=== PATIENT | female | born 1995 | race Caucasian/White ===

== ENCOUNTER 2022-08-26 13:10 | Outpatient (CLI) | payer MEDICARE, SELFPAY ==
[2022-08-26 15:06] LABS: Cholesterol* 170 mg/dL (90-199); Triglycerides* 118 mg/dL (40-149)
[2022-08-26 15:07] LABS: HDL Cholesterol* 55 mg/dL (>=50); LDL Cholesterol Calculated 91 mg/dL (<100)
== END 2022-08-26 13:11 | disposition home or self-care (01) ==
LOC: NFLDREF 13:11
PROVIDERS: Visit Provider Obstetrics & Gynecology
DX: Z01.419 Encounter for gynecological examination (general) (routine) without abnormal findings (principal); E66.01 Morbid (severe) obesity due to excess calories; Z68.42 Body mass index [BMI] 45.0-49.9, adult; N92.0 Excessive and frequent menstruation with regular cycle; N93.8 Other specified abnormal uterine and vaginal bleeding
CPT/HCPCS: 80061

== ENCOUNTER 2022-08-30 13:48 | Outpatient (CLI) | payer MEDICARE, SELFPAY ==
--- NOTE | 2022-08-30 14:00 | CRLHL7_ITS ---
For Patients: As a result of the Century Cures Act, medical imaging exams and procedure reports are released immediately into your electronic medical record. You may view this report before your referring provider. If you have questions, please contact your health care provider. INDICATION: Abnormal uterine bleeding TECHNIQUE: Ultrasound pelvis transabdominal and transvaginal for better assessment or to better visualize the endometrium. Real time sonographic images with Spectral and color Doppler imaging of the ovaries were obtained. COMPARISON: None FINDINGS: Uterus: 7.6 centimeter x 3.3 centimeter x 3.6 centimeter normal echotexture of the myometrium. No masses. Endometrium: Transvaginal imaging was performed to better evaluate the endometrium. 6 millimeter in thickness. No sign of endometrial mass or fluid. Right ovary: 5.8 centimeter x 2.5 centimeter x 3.7 centimeter no ovarian or adnexal masses. Normal arterial and venous blood flow. 2.9 centimeter dominant follicle. Left ovary: 4.2 centimeter x 2.3 centimeter x 3.0 centimeter no ovarian or adnexal masses. Normal arterial and venous blood flow. 2.5 centimeter dominant follicle. Cul-de-sac: No significant free fluid. IMPRESSION: Unremarkable pelvic ultrasound. Dictated by Michael Reyes MD @ 08/30/2022 3:36:11 PM (Electronically Signed)
== END 2022-08-30 13:49 | disposition home or self-care (01) ==
PROVIDERS: Visit Provider Obstetrics & Gynecology
DX: N93.8 Other specified abnormal uterine and vaginal bleeding (principal)
CPT/HCPCS: 76830; 76856

== ENCOUNTER 2023-09-25 08:52 | Outpatient (CLI) | payer BC, SELFPAY ==
--- OUTSIDE RECORDS SUMMARY | 2023-09-25 08:55 | XMS_ITS | Clinical Summary ---
Author Name Unknown Organization [facility] Address [place], [place] [address] Care Team Providers Care Ophthalmic Surgeon Name Role Phone Ewa Ko Primary Care Provider [phone] Allergies Active Allergy Reactions Criticality Noted Date Comments Latex Hives 01/17/2019 Nsaids (Non-Steroidal Anti-Inflammatory Drug) Other - Describe In Comment Field 05/22/2019 This patient has a history of a Sailaja-en-Y gastric bypass. AVOID NSAIDs and aspirin due to risk of gastric and/or G-J anastomotic ulcers. If Elsy must be on short course of NSAIDs or aspirin, use enteric coated if possible and use PPI Sulfa (Sulfonamide Antibiotics) Hives 01/17/2019 Medications Medication Sig Dispensed Refills Start Date End Date Status melatonin 10 mg tab Take 10 mg by mouth at bedtime. 0 01/17/2019 Active etonogestrel subdermal implant (NEXPLANON) 68 mg implant Inject 1 Each subdermal one time for 1 dose. 1 Device 0 10/05/2020 Active albuterol HFA (PRO-AIR; VENTOLIN; PROVENTIL) 90 mcg/actuation inhalerIndications:E xercise-induced asthma Inhale 1-2 Puffs by mouth every 4 hours if needed for Shortness Of Breath or Wheezing. 1 Each 0 06/29/2022 Active buPROPion (WELLBUTRIN XL) 300 mg Extended-Release tabletIndications:GA D (generalized anxiety disorder) Take 1 Tablet (300 mg) by mouth once daily. 90 Tablet 0 01/06/2023 Active hydrOXYzine HCL (ATARAX) 25 mg tabletIndications:GA D (generalized anxiety disorder) Take 1 Tablet (25 mg) by mouth every 6 hours if needed for Anxiety. 25 Tablet 0 01/06/2023 Active cholecalciferol (Vitamin D) 1,000 unit capsule Take 1,000 units by mouth once daily. 0 Active multivit-min/ferrous fumarate (MULTI VITAMIN ORAL) Take by mouth. 0 Active naltrexone (REVIA) 50 mg tabletIndications:Al cohol dependence in remission (HC) Take 1.5 Tablets (75 mg) by mouth once daily. 0 07/05/2023 Active Active Problems Patient Care Coordination No te Formatting of this note migh t be different from the original. Nutrition Referral 08/23/19. dmh Problem Noted Date Diagnosed Date Exercise-induced asthma 06/29/2022 Alcohol dependence in remission 06/29/2022 Alcohol withdrawal 05/15/2022 Alcoholic ketoacidosis 05/15/2022 Starvation ketoacidosis 05/15/2022 Hypomagnesemia 05/15/2022 Thrombocytopenia 05/15/2022 Laparoscopic sailaja-en-y gastric bypass 05/20/2019 Overview: February Morbid obesity with BMI of 45.0-49.9, adult 01/19 Mild asthma 01/30/2019 Fatigue 01/30/2019 Low back pain 01/30/2019 Depression 01/30/2019 Anxiety 08/20/2012 Overview: 08/20/2012 start fluoxetine 10 mg po qd Resolved Problems Problem Noted Date Diagnosed Date Resolved Date Severe episode of recurrent major depressive disorder, without psychotic features 01/12/202111/2021 SOB (shortness of breath) on exertion 01/30/2019 05/01/2019 Encounters Date Type Department Care Team Description 07/14/2023 9:20 AM PASTE PLANT SUPERVISOR Orders Only [facility] [address] [place] [address] Lab, [place] [facility] 07/14/2023 Travel 07/05/2023 8:15 AM PASTE PLANT SUPERVISOR Office Visit [facility] [address] [place] [address] Ewa Ko PA Physical (physical) 07/05/2023 Travel from Last 3 Months Immunizations Name Administration Dates Next Due COVID-19 Vaccine Spikevax (M oderna 50mcg/0.5mL) 12YO+ [id number] Formula PF 07/05/2023 COVID-19 vaccine (Pfizer-Bio NTech 30mcg/0.3mL) 12YO+ BIVALENT PF, MDV 06/29/2022 COVID-19 vaccine (Pfizer-Bio NTech 30mcg/0.3mL) 12YO+ TAVARES-SUCROSE PF, MDV 09/26/2021 COVID-19 vaccine (Pfizer-Bio NTech 30mcg/0.3mL) PF, MDV 12/22/2020,11/30/2020 DTaP 04/21/1998, 5,02/15/1994,12/13,1993 Hepatitis B (Peds) 06/15/1994,1993, 994 Hib Conjugate, Unspecified 05/08/1998,,02/15/1994,12/13,1993 Human Papilloma Virus Vaccine 03/12/2009, 008,02/14/2008 Inactivated Polio Vaccine 05/08/1998,,1993,10/18 Influenza, IIV3 (Age >=3 years) 08/30/2012,06/19 Influenza, IIV4 07/05/2023,05/24/2022 Influenza, Injectable, Mdck, Quadrivalent, W/preservative 05/11/2021 MMR 05/08/1998,11/22/1994 Meningococcal Vaccine (Menactra) 02/14/2008 Pneumococcal Conj 20-valent (Prevnar 20) 06/29/2022 Td, Preservative Free (age >= 7 Years) Tdap 04/06/2006 Varicella Vaccine 04/06/2006,09/05/1995 Family History Medical History Relation Name Comments Alcoholism Father Sober x 27 year s Bipolar disorder Father Drug Abuse Father Sober Obesity Father Autism spectrum disorder Half-Brother 1 Autism spectrum disorder Half-Brother 2 Hypertension Maternal Grandmother Allergies Mother Cervical cancer Mother Depression Mother Obesity Mother Social phobia Mother Relation Name Status Comments Father Alive Half-Brother 1 Alive Half-Brother 2 Alive Maternal Grandfather Alive Maternal Grandmother Alive Mother Alive Paternal Grandfather Alive Paternal Grandmother Alive Social History Tobacco Use Types Packs/Day Years Used Date Smoking Tobacco: Former Cigarettes Q uit: 08/21/2016 Tobacco Cessation:Counseling Given: Not Answered Alcohol Use Standard Drinks/Week Comments Not Currently 0 (1 standard drink = 0.6 oz pur e alcohol) not since 05/15/22 PHQ-2 Answer Date Recorded PHQ-2 TOTAL SCORE 3 07/05/2023 [facility] - Occupational Stress Questionnaire Answer Date Recorded Feeling of Stress Only a little 01/30/2019 Exercise Vital Sign Answer Date Recorde d Days of Exercise per Week 2 days 2018 Minutes of Exercise per Session 30 min 01/30/2019 Social Connections Answer Date Recorded Frequency of Communication with Friends and Fami ly Not on file 06/30/2023 Financial Resource Strain Answer Date R ecorded Difficulty of Paying Living Expenses 3 06/29/2022 Difficulty of Paying Living Expenses Not on file 06/29/2022 Food Insecurity Answer Date Recorded Worried About Running Out of Food in the Last Ye ar 1 06/29/2022 Transportation Needs Answer Date Record ed Lack of Transportation (Medical) 1 06/29/2022 Housing Stability Answer Date Recorded Unable to Pay for Housing in the Last Year 1 06/29/2022 Sex and Gender Information Value Date Recorded Sex Assigned at Not on file Gender Identity Not on file Sexual Orientation Bisexual 06/29/2022 10 :20 AM PASTE PLANT SUPERVISOR Sexual Orientation Something else 06/29/2022 10 :20 AM PASTE PLANT SUPERVISOR Obstetrics History Last Filed Vital Signs Vital Sign Reading Time Taken Comments Blood Pressure 111/73 07/05/2023 8:20 AM PASTE PLANT SUPERVISOR Pulse 71 07/05/2023 8:20 AM PASTE PLANT SUPERVISOR Temperature 36.7 ??C (98 ??F) 05/24/2022 1:52 PM CDT Respiratory Rate 16 05/18/2022 7:49 AM CDT Oxygen Saturation 100% 07/05/2023 8:20 AM PASTE PLANT SUPERVISOR Inhaled Oxygen Concentration - - Weight 62 kg (136 lb 9.6 oz) 07/05/2023 8:20 AM PASTE PLANT SUPERVISOR Height 162.6 cm (5' 4) 07/05/2023 8:20 AM PASTE PLANT SUPERVISOR Body Mass Index 23.45 07/05/2023 8:20 AM PASTE PLANT SUPERVISOR Plan of Treatment Health Maintenance Due Date Last Done Comments BMI (ht and wt on same day) for age 18+ 07/05/2024 07/05/2023, 06/29/2022, 05/24/2022, Additional history exists Depression screening for age 12+ 07/05/2024 07/05/2023, 01/06/2023, 01/06/2023, Additional history exists Pap test for age 21-65 08/26/2025 08/26/2022 Tetanus booster 05/24/2032 05/24/2022, 04/06/2006 Tdap Completed 04/06/2006 Hepatitis C screening for ag e 18-79 Completed 05/17/2022 HIV for age 15-65 Completed 05/18/2022 Pneumococcal series for age 6-64 Completed 06/29/20 COVID-19 vaccine series Completed 07/05/20 23, 06/29/2022, 09/26/2021, Additional history exists Influenza for age 9-49 Completed 3, 05/24/2022, 05/11/2021, Additional history exists Medical Devices Implanted Type Area Radio Host Device Identifier Shelf Expiration Date Model / Serial / Lot Mesh Ventral 45 [employer] [place] - [id number] Implanted:Qty: 2 on 05/20/2019 by FebruaryLoreto MD at [facility].[employer] 10/18/2021 [id number] / / [id number] Description:NO STICKER FROYLAN Mesh Ventral 45 [employer] [place] - [id number] Implanted:Qty: 1 on 05/20/2019 by FebruaryLoreto MD at [facility].[employer] 10/18/2021 [id number] / / [id number] Description:NO STICKER JM Procedures Procedure Name Priority Date/Time Associated Diagnosis Comments FERRITIN Routine 07/14/2023 9:30 AM PASTE PLANT SUPERVISOR Laparoscopic sailaja-en-y gastric bypass VITAMIN B1 (THIAMINE) BLOOD Routine 07/14/2023 9:30 AM PASTE PLANT SUPERVISOR Laparoscopic sailaja-en-y gastric bypass FOLIC ACID Routine 07/14/2023 9:30 AM PASTE PLANT SUPERVISOR Laparoscopic sailaja-en-y gastric bypass VITAMIN D 25 (DEFICIENCY) Routine 07/14/2023 9:30 AM PASTE PLANT SUPERVISOR Laparoscopic sailaja-en-y gastric bypass BASIC METABOLIC PANEL Routine 07/14/2023 9:30 AM PASTE PLANT SUPERVISOR Laparoscopic sailaja-en-y gastric bypass VITAMIN B12 Routine 07/14/2023 9:30 AM PASTE PLANT SUPERVISOR Laparoscopic sailaja-en-y gastric bypass from Last 3 Months Results * VITAMIN B1 (THIAMINE) BLOOD (07/14/2023 9:30 AM PASTE PLANT SUPERVISOR) Pathologist [facility] VITAMIN B1 WHL BLD 169.7 66.5 - 200.0 nmol/L 07/16/2023 11:06 PM PASTE PLANT SUPERVISOR [facility] ([facility]) Blood BLOOD SPECIMEN / Unknown Venipuncture / Unknown 07/14/2023 9:30 AM PASTE PLANT SUPERVISOR 07/14/2023 9:31 AM PASTE PLANT SUPERVISOR Narrative [facility] ([facility]) - 07/16/2023 11:06 PM PASTE PLANT SUPERVISOR Test(s) 457257-Myj. B1, Whole Blood was developed and its performance characteristics determined by [facility]. It has not been cleared or approved by the Food and Drug Administration. Performed at: ??01 - [facility] [address] [place] [address] ??[id number] Crewman Main Battle Tank: Emanuel Freeman MD, Phone: ??[phone] Ewa WYNN SEND OUTS [facility] ([facility]) [address] [place] [id number], * VITAMIN D 25 (DEFICIENCY) (07/14/2023 9:30 AM PASTE PLANT SUPERVISOR) Pathologist [facility] VITAMIN D TOTAL 36.4 20.0 - 80.0 ng/mL 07/14/2023 4:45 PM PASTE PLANT SUPERVISOR [facility] Blood BLOOD SPECIMEN / Unknown Venipuncture / Unknown 07/14/2023 9:30 AM PASTE PLANT SUPERVISOR 07/14/2023 9:31 AM PASTE PLANT SUPERVISOR Narrative [facility] - 07/14/2023 4:45 PM PASTE PLANT SUPERVISOR ? Vitamin D Status Deficiency: ? <20 ng/mL Insufficiency: ?20-29 ng/mL Sufficiency: ?30-80 ng/mL Possible Toxicity: ??>80 ng/mL Based on Harvey of Medicine recommendations Biotin supplements may cause clinically significant interference for this test assay. ??If interference is suspected, it is strongly recommended that biotin is discontinued for at least one week prior to retesting. Ewa WYNN SEND OUTS Performing Organization Address [facility] Co de Phone Number [facility] [address] [place] [address], * FOLIC ACID (07/14/2023 9:30 AM PASTE PLANT SUPERVISOR) FOLIC ACID 27.1 4.6 - 34.8 ng/mL 07/14/2023 5:15 PM PASTE PLANT SUPERVISOR [facility] Blood BLOOD SPECIMEN / Unknown Venipuncture / Unknown 07/14/2023 9:30 AM PASTE PLANT SUPERVISOR 07/14/2023 9:31 AM PASTE PLANT SUPERVISOR Narrative [facility] - 07/14/2023 5:15 PM PASTE PLANT SUPERVISOR Biotin supplements may cause clinically significant interference for this test assay. ??If interference is suspected, it is strongly recommended that biotin is discontinued for at least one week prior to retesting. Ewa WYNN CHEMISTRY Performing Organization Address City/[facility] Co de Phone Number [facility] [address] [place] [address], * FERRITIN (07/14/2023 9:30 AM PASTE PLANT SUPERVISOR) FERRITIN 21.0 15.0 - 150.0 ng/mL 07/14/2023 4:45 PM PASTE PLANT SUPERVISOR [facility] Blood BLOOD SPECIMEN / Unknown Venipuncture / Unknown 07/14/2023 9:30 AM PASTE PLANT SUPERVISOR 07/14/2023 9:31 AM PASTE PLANT SUPERVISOR Ewa WYNN CHEMISTRY Performing Organization Address City/[facility]/ZIP Co de Phone Number [facility] [address] [place] [address], * VITAMIN B12 (07/14/2023 9:30 AM PASTE PLANT SUPERVISOR) Pathologist [facility] VITAMIN B12 462 232 - 1,245 pg/mL 07/14/2023 4:45 PM PASTE PLANT SUPERVISOR [facility] Blood BLOOD SPECIMEN / Unknown Venipuncture / Unknown 07/14/2023 9:30 AM PASTE PLANT SUPERVISOR 07/14/2023 9:31 AM PASTE PLANT SUPERVISOR Narrative [facility] - 07/14/2023 4:45 PM PASTE PLANT SUPERVISOR Biotin supplements may cause clinically significant interference for this test assay. ??If interference is suspected, it is strongly recommended that biotin is discontinued for at least one week prior to retesting. Ewa WYNN CHEMISTRY Performing Organization Address [facility] Co de Phone Number [facility] [address] [place] [address], * BASIC METABOLIC PANEL (07/14/2023 9:30 AM PASTE PLANT SUPERVISOR) [facility] SODIUM 144 136 - 145 mmol/L 07/14/2023 4:45 PM PASTE PLANT SUPERVISOR [facility] POTASSIUM 4.6 3.5 - 5.1 mmol/L 07/14/2023 4:45 PM PASTE PLANT SUPERVISOR [facility] CHLORIDE 105 98 - 107 mmol/L 07/14/2023 4:45 PM PASTE PLANT SUPERVISOR [facility] CO2,TOTAL 28 22 - 29 mmol/L 07/14/2023 4:45 PM PASTE PLANT SUPERVISOR [facility] ANION GAP 11 5 - 18 07/14/2023 4:45 PM PASTE PLANT SUPERVISOR [facility] GLUCOSE 94 70 - 99 mg/dL 07/14/2023 4:45 PM PASTE PLANT SUPERVISOR [facility] CALCIUM 9.5 8.6 - 10.0 mg/dL 07/14/2023 4:45 PM PASTE PLANT SUPERVISOR [facility] BUN 9 6 - 20 mg/dL 07/14/2023 4:45 PM PASTE PLANT SUPERVISOR [facility] CREATININE 0.73 0.50 - 0.90 mg/dL 07/14/2023 4:45 PM PASTE PLANT SUPERVISOR [facility] BUN/CREAT RATIO 12 10 - 20 4:45 PM PASTE PLANT SUPERVISOR [facility] eGFR >90 >90 mL/min/1.7 3m2 07/14/2023 4:45 PM PASTE PLANT SUPERVISOR [facility] Comment:As of 2021, eG FR is calculated by the CKD-EPI creatinine equation without race adjustment. ??eGFR can be influenced by muscle mass, exercise, and diet. ??The reported eGFR is an estimation only and is only applicable if the renal function is stable. Blood BLOOD SPECIMEN / Unknown Venipuncture / Unknown 07/14/2023 9:30 AM PASTE PLANT SUPERVISOR 07/14/2023 9:31 AM PASTE PLANT SUPERVISOR Ewa WYNN CHEMISTRY [facility] [address] [place] [address], from Last 3 Months Advance Directives Latest Code Status on File Code Status Date Activated Date Inactivated Comments Full Code 05/16/2022 1:07 PM 05/18/2022 4:41 PM Question Answer Comments Code Status Discussion: Reviewed Preferences Code Status History Code Status Date Activated Date Inactivated Comments Full Code 05/15/2022 1:35 PM 05/16/2022 1:07 PM Question Answer Comments Code Status Discussion: Unable to Assess Preferences, Provider to review later Full Code 05/20/2019 8:56 AM 05/21/2019 6:56 PM Care Teams Ophthalmic Surgeon Relationship Specialty Start Date End Date Ewa Ko PA [address] [place] [address] PCP - General Physician Business Applications Developer 10/18/22
--- OUTSIDE RECORDS SUMMARY | 2023-09-25 08:55 | XMS_ITS | Clinical Summary ---
Author Name Unknown Organization [facility] Address [address] [place] [address] Care Team Providers Care Lime Mixer Tender Name Role Phone Yo Garsia MD Primary Care Provider [phone] Source Comments You are receiving this document as you are listed as the primary care provider,follow-up provider, or the patient has been referred to you for consultation.This is in compliance with the Medicare and[facility] Hospital[facility] EHR Incentive Program,which states Providers who transition their patient to another setting of careor provider of care or refers their patient to another provider of care shouldprovide summary care record for each transition of care or referral. [place] Allergies Active Allergy Reactions Criticality Noted Date Comments Ibuprofen Other, see comments 08/26/2013 Pt states she had a reaction Latex Hives High 01/17/2019 Sulfa Antibiotics Rash Medium 05/12/2008 Per Mom-raised red rash Medications Medication Sig Dispensed Refills Start Date End Date Status fluticasone (FLOVENT HFA) 110 mcg/actuation inhaler Inhale 2 Puffs two times a day. Rinse mouth after use 12 g 3 09/20/2016 Active sertraline (ZOLOFT) 50 MG tablet Take 1 Tablet by mouth daily. 90 Tablet 3 02/16/2021 Active Active Problems Problem Noted Date Diagnosed Date Severe episode of recurrent major depressive disorder, without psychotic features 01/12/2021 Screening for malignant neoplasm of cervix 03/16 Overview: 2015 NILM, no ECC but age 19 so per ASCCP guidelines no HPV should be done. Plan: Pap 02/2018 ICD 10 Rhinitis 03/12/2013 Anxiety 08/20/2012 Overview: 08/20/2012 start fluoxetine 10 mg po qd Encounter for surveillance of other contraceptiv e 03/12/2009 Overview: 03/29-start [facility] Epic Immunizations Name Administration Dates Next Due 4vHPV (Gardasil) 03/12/2009,05/02/2008, 8 DTaP 04/21/1998, 5,02/15/1994,1993,1993 Flu Vac (3+ yrs) 08/30/2012 HepB Ped/Adol (0-18 yrs) 06/15/1994,1993,0 1993 Hib, Unspecified Formulation 05/08/1998, 11/22/1994,02/15/1994,1993,1993 IPV (Polio) 05/08/1998, 4,1993,1993 Influenza Vaccine (3+years) ([facility]) 06/19/2008 MCV4 (Menactra) 02/14/2008 MMR 05/08/1998,11/22/1994 Pfizer Monovalent 12+ Purple Top 12/22/2020,11/19 Tdap 04/06/2006 Varicella 04/06/2006,09/05/1995 Family History Medical History Relation Name Comments Alcohol/Drug Abuse Father Anxiety Father Depression Father Obesity Father Depression Mother Obesity Mother Asthma Other 1 self excercise related Hypertension Other 2 Grandparents Cancer, Breast Other 3 Great Grandmo ther Cataract Other 4 Great grandmoth er Depression Other 5 self Relation Name Status Comments Father Alive Mother Alive Brother 1 Alive half -through d ad Brother 2 Alive half -through d ad-twin boys-7 y.o Maternal Grandfather Alive Maternal Grandmother Alive Other 1 Other 2 Other 3 Other 4 Other 5 Paternal Grandfather Alive Paternal Grandmother Alive Social History Tobacco Use Types Packs/Day Years Used Date Smoking Tobacco: Former Smokeless Tobacco: Never Comments:former e cig Alcohol Use Standard Drinks/Week Comments Yes 0 (1 standard drink = 0.6 oz pur e alcohol) less than 2/weekly PHQ-2 Answer Date Recorded PHQ-2 Score 6 01/12/2021 Sex and Gender Information Value Date Recorded Sex Assigned at Not on file Gender Identity Not on file Sexual Orientation Not on file Last Filed Vital Signs Vital Sign Reading Time Taken Comments Blood Pressure 126/87 09/20/2016 8:48 AM CONTROL ROOM AGENT Pulse 78 09/20/2016 8:48 AM CONTROL ROOM AGENT Temperature 36.9 ??C (98.5 ??F) 09/20/2016 8:48 AM CS T Respiratory Rate 14 03/06/2015 8:37 AM CDT Oxygen Saturation 99% 06/24/2009 2:35 PM CONTROL ROOM AGENT Inhaled Oxygen Concentration - - Weight 102.7 kg (226 lb 6.4 oz) 09/20/2016 8:48 AM CONTROL ROOM AGENT Height 161.3 cm (5' 3.5) 09/20/2016 8:48 AM CONTROL ROOM AGENT Body Mass Index 39.48 09/20/2016 8:48 AM CONTROL ROOM AGENT Plan of Treatment Health Maintenance Due Date Last Done Comments Hep C Screening (Preventive Services) 1993 HIV Screening (Preventive Services) 2009 Cervical Cancer Screening Due 03/07/2015 03/06/2015 DTaP/Tdap/Td (7 - Tdap) 04/06/2016 04/06/20 06, 04/21/1998, 11/22/1994, Additional history exists Adult Preventive Visit 03/06/2017 5, 08/22/2013, 08/20/2012, Additional history exists COVID-19 Vaccine ( season) 2023 12/22/2020, 11/30/2020 Influenza (#1) 2023 08/30/2012, 06/19/2008 Zoster/Shingles (1 of 2) 2043 HepB Completed 06/15/1994, 09/22, 1993 Hib Completed 05/08/1998, 11/1994, 02/15/1994, Additional history exists IPV (Polio) Completed 05/08/1998, 01/20, 1993, Additional history exists MCV4 Aged Out 02/14/2008 No longer eligi ble based on patient's age to complete this topic HPV Vaccine Completed 03/12/2009, 04/21, 02/14/2008 HepA Aged Out No longer eligi ble based on patient's age to complete this topic Pneumococcal Aged Out No longer eligi ble based on patient's age to complete this topic DANIKABRITTON MVA/TPL Mother 12/01/1967 [address] [place] [address] Care Teams Lime Mixer Tender Relationship Specialty [place] [address] [place] [address] PCP - General 08/24/20
[2023-09-25 17:15] LABS: Bacterial Vaginosis* Not Detected (No Detected); Candida glab/krus Not Detected (No Detected); Candida species Not Detected (No Detected); Trichomonas vaginalis Not Detected (No Detected)
== END 2023-09-25 08:53 | disposition home or self-care (01) ==
PROVIDERS: Visit Provider Advanced Practice Midwife
DX: N89.8 Other specified noninflammatory disorders of vagina (principal)
CPT/HCPCS: 81513; 87086; 87186; 87481; 87661

== ENCOUNTER 2024-01-10 12:55 | Outpatient (CLI) | payer OTHER, BC, SELFPAY ==
--- OUTSIDE RECORDS SUMMARY | 2024-01-13 06:23 | XMS_ITS | Clinical Summary ---
Author Organization [facility] Address [place], [place] [address] Care Team Providers Care Production Supply Equipment Tender Name Role Phone Ewa Ko Primary Care Provider [phone] Allergies Active Allergy Reactions Criticality Noted Date [...] one time for 1 dose. 1 Device 10/05/2020 Active albuterol HFA (PRO-AIR; VENTOLIN; PROVENTIL) 90 mcg/actuation inhalerIndications:E xercise-induced asthma Inhale 1-2 Puffs by mouth every 4 hours if needed for Shortness Of Breath or Wheezing. 1 Each 06/29/2022 Active buPROPion (WELLBUTRIN XL) 300 mg Extended-Release tabletIndications:GA D (generalized anxiety disorder) Take 1 Tablet (300 mg) by mouth once daily. 90 Tablet 01/06/2023 Active hydrOXYzine HCL (ATARAX) 25 mg tabletIndications:GA D (generalized anxiety disorder) Take 1 Tablet (25 mg) by mouth every 6 hours if needed for Anxiety. 25 Tablet 01/06/2023 Active cholecalciferol (Vitamin D) 1,000 unit capsule Take 1,000 units by mouth once daily. Active multivit-min/ferrous fumarate (MULTI VITAMIN ORAL) Take by mouth. 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 07/05/2023 Active Active Problems Patient Care Coordination [...] (shortness of breath) on exertion 01/30/2019 05/01/2019 Immunizations Name Administration Dates Next Due COVID-19 Vaccine Spikevax (M oderna 50mcg/0.5mL) 12YO+ 9433-0738 Formula PF 07/05/2023 COVID-19 vaccine ([employer] 30mcg/0.3mL) 12YO+ BIVALENT PF, MDV 06/29/2022 COVID-19 vaccine ([employer] 30mcg/0.3mL) 12YO+ TAVARES-SUCROSE PF, MDV 09/26/2021 COVID-19 vaccine ([employer] 30mcg/0.3mL) PF, MDV 12/22/2020,11/30/2020 DTaP 04/21/1998, 5,02/15/1994,12/13,1993 [...] Date Recorded PHQ-2 TOTAL SCORE 3 07/05/2023 [facility] - Occupational Stress [...] Sexual Orientation Bisexual 06/29/2022 10 :20 AM DIMENSIONAL INSPECTOR Sexual Orientation Something else 06/29/2022 10 :20 AM DIMENSIONAL INSPECTOR Obstetrics History Last Filed Vital Signs Vital Sign Reading Time Taken Comments Blood Pressure 111/73 07/05/2023 8:20 AM DIMENSIONAL INSPECTOR Pulse 71 07/05/2023 8:20 AM DIMENSIONAL INSPECTOR Temperature 36.7 ??C (98 ??F) 05/24/2022 1:52 PM CDT Respiratory Rate 16 05/18/2022 7:49 AM CDT Oxygen Saturation 100% 07/05/2023 8:20 AM DIMENSIONAL INSPECTOR Inhaled Oxygen Concentration - - Weight 62 kg (136 lb 9.6 oz) 07/05/2023 8:20 AM DIMENSIONAL INSPECTOR Height 162.6 cm (5' 4) 07/05/2023 8:20 AM DIMENSIONAL INSPECTOR Body Mass Index 23.45 07/05/2023 8:20 AM DIMENSIONAL INSPECTOR Plan of Treatment Health Maintenance Due Date Last Done Comments Influenza for age 9-49 04/21/2024 , 05/24/2022, 05/11/2021, Additional history exists BMI (ht and wt on same day) [...] Pneumococcal series for age 6-64 Completed 06/29/20 22 COVID-19 vaccine series Completed 07/05/20 23, 06/29/2022, 09/26/2021, Additional history exists Medical Devices Implanted Type Area Cement Tester Assistant Device Identifier Shelf Expiration Date Model / Serial / Lot Mesh Ventral 45 Seamguard [employer] - [id number] Implanted:Qty: 2 on 05/20/2019 by February, Loreto Hernandes MD at [facility].[employer] 10/18/2021 [id number] / / [id number] Description:NO STICKER JM Mesh Ventral 45 Seamguard [employer]omaton - [id number] Implanted:Qty: 1 on 05/20/2019 by February, Loreto Hernandes MD at [facility]. [employer] 10/18/2021 [id number] / / [id number] Description:NO STICKER JM Procedures Procedure Name Priority Date/Time Associated Diagnosis Comments SPEAKER MOUNTER THIN PREP PAP SCREEN IMAGED Routine 08/26/2022 1:30 PM DIMENSIONAL INSPECTOR RAPID HIV SCREEN Early AM 05/18/2022 6:25 AM CDT ACUTE HEPATITIS PANEL RD 05/17/2022 12:53 PM CDT from Last 3 Months or Most Recently Relevant to Health Maintenance Results * SPEAKER MOUNTER THIN PREP PAP SCREEN IMAGED (08/26/2022 1:30 PM DIMENSIONAL INSPECTOR) Case Report Gynecologic Cytology Report ? Case: [id number] ? Authorizing Provider: ??Vu, Yasminnegrita White MD ?Collected: ? 08/26/2022 1330 ? Ordering Location: ? [facility] ?Received: ?08/30/2022 1133 ? First Screen: ?Baccam, Minie ? Rescreen: ?Merry Braun ? Specimen: ?SPEAKER MOUNTER ThinPrep Vial Screening, Cervical ? 09/12/2022 6:00 PM DIMENSIONAL INSPECTOR [facility] INTERPRETATION/ RESULT NEGATIVE FOR INTRAEPITHELIAL LESION OR MALIGNANCY (NIL) (none) 09/12/2022 6:00 PM [facility] IMEN ADEQUACY Satisfactory for evaluation Endocervical component present 09/12/2022 6:00 PM DIMENSIONAL INSPECTOR [facility] HPV REQUEST HPV not requested 2022 6:00 PM DIMENSIONAL INSPECTOR [facility] Date of LMP 09/12/2022 6:00 PM DIMENSIONAL INSPECTOR [facility] Comment: Last Pap Date 09/12/2022 6:00 PM DIMENSIONAL INSPECTOR [facility]- ENTRAL LABORATORY Comment:Age 19 Last Pap Result NIL 6:00 PM DIMENSIONAL INSPECTOR [facility] Menstrual Status Regular Periods 09/12/2022 6:00 PM DIMENSIONAL INSPECTOR [facility] [place] Bx Done Today No 09/12/2022 6:00 PM DIMENSIONAL INSPECTOR [facility] Additional Information 09/12/2022 6:00 PM DIMENSIONAL INSPECTOR [facility] Comment: Interpreted at [facility] - [address], [place] [address] Automated Review Successful 09/12/2022 6:00 PM [facility] Comment:Specimen processed s uccessfully by automated order packer device, ThinPrep Imaging System, [employer] Note The pap test is a screening technique, not a diagnostic procedure. It is used primarily to screen for squamous cancers and precursor lesions. Published studies have shown that it is subject to both false negative and false positive results. The pap test should not be used as the sole means to diagnose or exclude pre-malignant and malignant lesions. 09/12/2022 6:00 PM DIMENSIONAL INSPECTOR [facility] Other (Cervical) 08/26/2022 1:30 PM DIMENSIONAL INSPECTOR 08/30/2022 11:33 AM DIMENSIONAL INSPECTOR Yasmin Cindy Mac MD PATHOLOGY/CYTOLOGY [facility] [address] [place] [address], * RAPID HIV SCREEN (05/18/2022 6:25 AM CDT) RAPID HIV SCREEN Non-React natasha Non-Reactiv e, Invalid 05/18/2022 7:21 AM CDT [facility] TR[facility] Comment:A NONREACTIVE test r esult means that HIV-1 or HIV-2 antibodies and HIV-1 p24 antigen were not detected in the specimen. Blood BLOOD SPECIMEN / Unknown Venipuncture / Unknown 05/18/2022 6:25 AM CDT 05/18/2022 6:34 AM CDT Brandee WYNN CHEMISTRY [facility] [address] [place] [address], * ACUTE HEPATITIS PANEL (05/17/2022 12:53 PM CDT) HEPATITIS C ANTIBODY Non-Reactive Non-Reactive 05/17/2022 5:33 PM CDT [facility] EN[facility] Comment:Antibodies to HCV no t detected; does not exclude the possibility of exposure to HCV. IGM ANTI HAV Non-Reactive Non-Reactive 05/17/20 22 5:33 PM CDT [facility] HBSAG Nonreactive Nonreactive 05/17/2022 5:33 PM CDT [facility] IGM ANTI HBC Non-Reactive Non-Reactive 05/17/20 5:33 PM CDT [facility] Blood BLOOD SPECIMEN / Unknown Venipuncture / Unknown 05/17/2022 12:53 PM CDT 05/17/2022 1:00 PM CDT Narrative [facility] - 05/17/2022 5:33 PM CDT Anti-HBc IgM not detected. Does not exclude the possibility of exposure to or infection with HBV. Brandee WYNN SEND OUTS Performing Organization Address City/[facility]/ZIP Co de Phone Number [facility] [address] [place] [phone], from Last 3 Months or Most Recently Relevant to Health Maintenance Advance Directives * Full Code (Latest Code Status on File) Date Activated Date Inactivated Comments 05/16/2022 1:07 PM 05/18/2022 4:41 PM Question Answer Comments Code Status Discussion: Reviewed Preferences * Full Code Date Activated Date Inactivated Comments 05/15/2022 1:35 PM 05/16/2022 1:07 PM Question Answer Comments Code Status Discussion: Unable to Assess Preferences, Provider to review later * Full Code Date Activated Date Inactivated Comments 05/20/2019 8:56 AM 05/21/2019 6:56 PM Care Teams Production Supply Equipment Tender Relationship Specialty Start Date End Date Ewa Ko PA [address] [place] [address] PCP - General Physician Claims Supervisor 10/18/22
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
== END 2024-01-10 12:56 | disposition home or self-care (01) ==
LOC: AMB 01-13 06:21
PROVIDERS: Visit Provider Emergency Medicine
DX: T14.90XA Injury, unspecified, initial encounter (principal); V49.60XA Unspecified car occupant injured in collision with unspecified motor vehicles in traffic accident, initial encounter; Y92.414 Local residential or business street as the place of occurrence of the external cause
CPT/HCPCS: A0998